=== PATIENT | male | born 1965 | race Caucasian/White ===

== ENCOUNTER 2022-10-13 11:10 | Emergency (ER) | payer BC, SELFPAY ==
--- NOTE | ~2022-10-13 | XR_ITS ---
EXAMINATION: XR CHEST CLINICAL INFORMATION: Chest pain. COMPARISON: None available. TECHNIQUE: 2 views of the chest were obtained. FINDINGS: The lungs are moderately expanded. No focal consolidation. No pleural effusion. Cardiac silhouette is within normal limits. XR/XR chest 2V IMPRESSION: No acute abnormality.
--- NOTE | 2022-10-13 11:13 | ECG_ITS ---
Test Reason : CP Blood Pressure : / mmHG Vent. Rate : 074 BPM Atrial Rate : 074 BPM P-R Int : 150 ms QRS Dur : 088 ms QT Int : 450 ms P-R-T Axes : 057 037 054 degrees QTc Int : 499 ms Normal sinus rhythm Prolonged QT Abnormal ECG When compared with ECG of 13-OCT-2006 13:35, No significant change was found Referred By: Generic ED Physician Electronically Signed By:Rangel Kulkarni
[2022-10-13 11:15] VITALS: BP 151/92; PULSE 85; RESP 20; TEMP 36.6; O2SAT 98; BMI 32.1
[2022-10-13 11:25] VITALS: PULSE 75
[2022-10-13 11:29] VITALS: BP 132/82; PULSE 68; PULSE 70; RESP 15; TEMP 36.5; O2SAT 97
--- NOTE | 2022-10-13 11:37 | ED_ITS ---
HPI - Chest Pain General Chief Complaint: Chest Pain Stated Complaint: chest pain Time Seen by Provider: 10/13/22 11:35 Source: patient and RN notes reviewed Mode of arrival: ambulatory Limitations: no limitations History of Present Illness HPI narrative: This is a 56-year-old male, with a past medical history of hyperlipidemia and hypertension, presenting to the emergency department with complaints of 2 days of substernal chest pain. Patient states that the pain is intermittent and occurs with moving around. Denies any recent trauma, or injury. Patient denies any fevers, chills, cough, palpitations, shortness of breath, abdominal pain, nausea, vomiting, or diarrhea. He states that he had a cardiac workup 2 years ago which was unremarkable. Patient reports that he recently traveled from [place] via train, reports that it was 9 hours and then an additional 7 hour car ride home. Patient reports that his father from heart attack at age 62. He reports that he played golf last week and is unsure if he strained a muscle while playing. No other complaints or concerns at this time. MD complaint: other (Chest tightness) Pertinent past history: coronary artery disease Onset (ago): day(s) Timing of current episode: episodic Prior episodes: Yes Onset: awoke with symptoms and other (Movement) Pain location: substernal Pain radiation: none Quality: tightness Relieving factors: nothing Exacerbating factors: nothing Context: recent travel Treatment prior to arrival: aspirin Risk Factors Coronary artery disease risk factors: hyperlipidemia and hypertension Thoracic aortic dissection risk factors: none Pulmonary embolism risk factors: immobilization (Recent long travel) Related Data Allergies Allergy/AdvReac Type Severity Reaction Status Date / Time nut - unspecified Allergy Anaphylaxis Verified 10/13/22 11:38 peanut Allergy Anaphylaxis Verified 10/13/22 11:38 tree nut Allergy Anaphylaxis Verified 10/13/22 11:38 Review of Systems Review of Systems: Constitutional: No Weight loss, No Fever, No Chills, No Night Sweats, No Fatigue, No Malaise ENT/Mouth: No Hearing loss, No Ear Pain, No Nasal Congestion, No Sinus Pain, No Hoarseness, No sore throat, No Rhinorrhea, No Swallowing Difficulty Eyes: No Eye Pain, No Swelling, No Redness, No Foreign Body, No Discharge, No Vision Changes Cardiovascular: +Chest Pain, No SOB, No Dyspnea on Exertion, No Orthopnea, No Edema, No Palpitations Respiratory: No Cough, No Sputum, No Wheezing, No Smoke Exposure, No Dyspnea Gastrointestinal: No Nausea, No Vomiting, No Diarrhea, No Constipation, No Abdominal pain, No Hematochezia, No Melena Genitourinary: No irregular bleeding, No Dysuria, No Urinary Frequency, No Hematuria, No Urinary Incontinence/retention, No Urgency, No Flank Pain, No Urinary Flow Changes, No Hesitancy Musculoskeletal: No joint pain, No Myalgias, No Joint Swelling Skin: No Skin Lesions, No rash Neuro: No Weakness, No Numbness, No Paresthesias, No Loss of Consciousness, No Dizziness, No Headache Psych: No Anxiety/Panic, No Depression, No SI/HI/AH/VH, No Social Issues, Heme/Lymph: No Bruising, No Bleeding,No Lymphadenopathy Endocrine: No Polyuria, No Polydipsia, No Temperature Intolerance Yes all other systems are reviewed and are negative Constitutional: Constitutional: Reports as per [facility] Social History Social History Smoked in Last 30 Days: No Use of substances other than those prescribed or required for medical reasons: No Advance Directives: Yes Advance Directives Information Provided: No Advance Directives on File: No Physical Exam Vital Signs: Vital Signs: Last Vital Signs Temp 98.2 F 10/13/22 13:35 Pulse 67 10/13/22 13:34 Resp 14 10/13/22 13:34 BP 149/96 H 10/13/22 13:34 Pulse Ox 98 10/13/22 13:34 O2 Del Method Room Air 10/13/22 13:34 BMI result Body Mass Index 32.1 Const: General: cooperative, comfortable and no acute distress Orientat ion/consciousness: patient oriented x3 Limitations: no limitations HEENT: Head: Yes normal to inspection, Yes normocephalic and Yes atraumatic Ears: hearing grossly normal bilaterally General nose exam: Normal external nose present Face and sinus: Yes normal facial exam Mouth: Normal oral and palatal mucosa present, oropharynx normal and moist mucous membranes Throat: Yes posterior oropharynx normal Eyes: General: appearance normal, both eyes and all related structures Eyelids: Yes eyelids normal Conjunctivae: conjunctivae normal Sclerae: sclerae normal Pupils: Equal, round and reactive pupils present EOM: EOMs intact bilaterally Neck: Neck: Yes normal visual inspection, Yes full ROM and Yes no lymphadenopathy Lymphatic: no lymphadenopathy noted Chest: Other: Point tenderness to palpation along the left anterior chest wall approximately 2 cm from the the medial clavicle. No step-off or deformity, no ecchymosis or edema. Chest palpation & inspection: normal inspection of the chest Resp: Effort & Inspection: normal respiratory effort and able to speak in complete sentences Auscultation: clear to auscultation bilaterally, no crackles, no rales, no rhonchi and no wheezes Cardio: Rate: regular rate Rhythm: regular rhythm Heart sounds: S1 normal heart sound present and S2 normal heart sound present GI: Other: Normoactive bowel sounds present in all 4 quadrants. Inspection: Yes normal to inspection Palpation (GI): Soft to palpation, nontender and no guarding Skin: General skin exam: no rashes or lesions noted Trauma: no lacerations or abrasions Wounds: no wounds Neuro: General: patient oriented x3 and moves all extremities Cranial nerves: Yes Equal, round and reactive pupils present Extrem: Other: No calf tenderness to palpation. General: Yes normal to inspection and No pedal edema Right upper extremity: normal to inspection Left upper extremity: normal to inspection Right lower extremity: normal to inspection Left lower extremity: normal to inspection Course Reevaluation(s) Reevaluation #1: Patient re-evaluated, chest x-ray unremarkable, no leukocytosis, D-dimer negative, chemistry panel within normal limits, patient tested negative for COVID, RSV, and flu. Troponin x1 negative, does not need repeat given symptoms have been constant for the last 2 days. Patient has reproducible left-sided chest wall tenderness consistent with musculoskeletal, given negative cardiac workup today. Discussed all these results with patient with at bedside. Patient is reassured this. Advised patient to follow-up with his primary care physician as patient may benefit from further cardiology outpatient workup given patient's father's medical history. Patient given return precautions. Patient understands and agrees with plan. Patient stable for discharge. Time: 14:32 Medical Decision Making Medical Decision Making MDM Narrative: 56-year-old male, with a past medical history of hypertension and hyperlipidemia, presenting to the emergency department for evaluation of chest tightness for the last 2 days. Patient awoke with the symptoms and states that the pain is intermittent and occurs with movement. On examination, patient mildly hypertensive at 151/92, all other vital signs within normal limits. Physical exam with point tenderness palpation along the left anterior chest wall. Patient reports recent long travel reporting long train ride approximately 9 hours and sound 7 hour car ride last week. Patient has no shortness of breath or palpitations. Patient has no known history of blood clots however given recent immobilization I think is reasonable to order a D- dimer for rule out. No lower extremities calf tenderness. Does not sound cardiac in etiology, likely musculoskeletal pain however will order cardiac workup for rule out given history of hypertension and hyperlipidemia. Plan: Labs, EKG, chest x-ray Differential Diagnosis Differential Diagnoses: The differential diagnosis associated with the presentation includes ACS, PE, pneumothorax, costochondritis, pneumonia Admission/Observation Consideration of admission/observation: Escalation of care including admission/observation considered Escalation of care was considered including admission given chest pain and to known cardiovascular risk factors. Lab Data MDM Lab Attestation statement: I reviewed the patient's lab results. See course 10/13/22 12:15 10/13/22 12:16 Labs: Lab Results 10/13/22 10/13/22 10/13/22 Range/Units 12:15 12:15 12:15 WBC 5.6 (4.8-10.8) X10*3/uL RBC 4.31 L (4.60-5.80) X10*6/uL Hgb 14.5 (14.0-18.0) g/dl Hct 42.7 (42.0-52.0) % MCV 99.1 H (80.0-98.0) fL MCH 33.6 H (27.0-33.0) pg MCHC 34.0 (31.0-36.0) g/dl RDW 12.8 (11.0-16.0) % Plt Count 250 (160-400) X10*3/uL MPV 9.0 L (9.4-12.4) fL Immature Gran % (Auto) 0.2 (0.0-0.4) % Neut % (Auto) 71.2 (45-73) % Lymph % (Auto) 12.5 L (20-40) % [place] % (Auto) 11.1 H (2-11) % Eos % (Auto) 4.5 H (0-4) % Baso % (Auto) 0.5 (0-2) % Lymph # (Auto) 0.7 L (1.2-4.9) X10*3/uL [place] # (Auto) 0.6 (0.1-1.2) X10*3/uL Eos # (Auto) 0.3 (0.0-0.4) X10*3/uL Baso # (Auto) 0.0 (0.0-0.2) X10*3/uL Abs Immat Gran (auto) 0.01 (0.00-0.03) X10*3/uL Absolute Neuts (auto) 4.0 (2.0-8.3) x10*3/uL Absolute Nucleated RBC 0.000 (0.0-0.012) X10*3/uL Nucleated RBC % (auto) 0.0 (0.0-0.2) /100WBC D-Dimer High Sensitivty NG/ML Sodium (135-145) mmol/L Potassium (3.3-5.1) mmol/L Chloride (96-108) mmol/L Carbon Dioxide (22-29) mmol/L Anion Gap (12-20) BUN (9-16) mg/dL Creatinine (0.5-1.4) mg/dL Estim Creat Clear Calc Estimated GFR Random Glucose (60-115) mg/dL Calcium (8.4-10.2) mg/dL Magnesium (1.6-2.6) mg/dL Total Bilirubin (0.0-1.0) mg/dL Direct Bilirubin (0.0-0.5) mg/dL AST (5-37) U/L ALT (0-40) U/L Alkaline Phosphatase (39-117) U/L Troponin I High Sens < 2.7 (<3.5-35.0) ng/L Total Protein (6.5-8.0) g/dL Albumin (3.5-5.0) g/dL Lipase (8-78) U/L Influenza Type A (PCR) NEGATIVE (Negative) Influenza Type B (PCR) NEGATIVE (Negative) RSV RNA Qual (PCR) NEGATIVE (Negative) SARS-CoV-2 RNA (RT-PCR) NEGATIVE (Negative) 10/13/22 10/13/22 Range/Units 12:16 12:16 WBC (4.8-10.8) X10*3/uL RBC (4.60-5.80) X10*6/uL Hgb (14.0-18.0) g/dl Hct (42.0-52.0) % MCV (80.0-98.0) fL MCH (27.0-33.0) pg MCHC (31.0-36.0) g/dl RDW (11.0-16.0) % Plt Count (160-400) X10*3/uL MPV (9.4-12.4) fL Immature Gran % (Auto) (0.0-0.4) % Neut % (Auto) (45-73) % Lymph % (Auto) (20-40) % [place] % (Auto) (2-11) % Eos % (Auto) (0-4) % Baso % (Auto) (0-2) % Lymph # (Auto) (1.2-4.9) X10*3/uL [place] # (Auto) (0.1-1.2) X10*3/uL Eos # (Auto) (0.0-0.4) X10*3/uL Baso # (Auto) (0.0-0.2) X10*3/uL Abs Immat Gran (auto) (0.00-0.03) X10*3/uL Absolute Neuts (auto) (2.0-8.3) x10*3/uL Absolute Nucleated RBC (0.0-0.012) X10*3/uL Nucleated RBC % (auto) (0.0-0.2) /100WBC D-Dimer High Sensitivty 237 NG/ML Sodium 142 (135-145) mmol/L Potassium 4.4 (3.3-5.1) mmol/L Chloride 103 (96-108) mmol/L Carbon Dioxide 27 (22-29) mmol/L Anion Gap 16 (12-20) BUN 12 (9-16) mg/dL Creatinine 0.93 (0.5-1.4) mg/dL Estim Creat Clear Calc 107.7 Estimated GFR > 60 Random Glucose 103 (60-115) mg/dL Calcium 10.6 H (8.4-10.2) mg/dL Magnesium 1.9 (1.6-2.6) mg/dL Total Bilirubin 1.0 (0.0-1.0) mg/dL Direct Bilirubin 0.3 (0.0-0.5) mg/dL AST 44 H (5-37) U/L ALT 38 (0-40) U/L Alkaline Phosphatase 100 (39-117) U/L Troponin I High Sens (<3.5-35.0) ng/L Total Protein 7.9 (6.5-8.0) g/dL Albumin 4.2 (3.5-5.0) g/dL Lipase 26 (8-78) U/L Influenza Type A (PCR) (Negative) Influenza Type B (PCR) (Negative) RSV RNA Qual (PCR) (Negative) SARS-CoV-2 RNA (RT-PCR) (Negative) Independent Interpretation I performed an independent interpretation of an: EKG Interpretation: EKG normal sinus rhythm at a ventricular rate of 74 beats per minute, CO interva l 150, QTC 499, no ST elevation or depression. Radiology Impression Discussion of test interpretation with radiology: I have reviewed the r adiologist's reading. Radiologist Impression: EXAMINATION: XR CHEST CLINICAL INFORMATION: Chest pain. COMPARISON: None available. TECHNIQUE: 2 views of the chest were obtained. FINDINGS: The lungs are moderately expanded. No focal consolidation. No pleural effusion. Cardiac silhouette is within normal limits. XR/XR chest 2V IMPRESSION: No acute abnormality. Dictated By: Love France MD Signed By: <Electronically signed by Love France MD in OV> 10/13/22 1342 DD/ 1257 TD/TT:? Meter Tester Polyphase: External Record Review External record reviewed: Inpatient record, Office record, Outpatient record, Prior outpatient labs, Prior outpatient radiology, Primary care record and Outside ED record Discharge Plan Discharge Clinical Impression: Chest pain Patient Disposition: Home, Self-Care Instructions: Chest Pain (ED) Additional Instructions: Your EKG was normal, your chest x-ray showed no evidence of pneumonia or any other abnormalities. And all other blood work was reassuring. Please follow-up with your primary care physician regarding this visit. You may take ibuprofen or Tylenol as needed for your pain. Ice pack or hot pack may help with your symptoms. If any new or worsening symptoms occur please return for re-evaluation.
--- NOTE | 2022-10-13 11:38 | PC.NURSE ---
pa/rn at bedside- eval pt- denies CP at this time. bp has improved from earlier- SBP 130s. resting with no distress. talking w/o SOB. +o2 sat on RA. no N/V. no dizziness.
[2022-10-13 12:33] LABS: MANUAL DIFF FLAG NO
[2022-10-13 12:35] LABS: Basophils Percent Auto 0.5 % (0-2); Eosinophils Absolute Auto 0.3 X10*3/uL (0.0-0.4); Eosinophils Percent Auto 4.5 % (0-4); Hematocrit 42.7 % (42.0-52.0); Hemoglobin 14.5 g/dl (14.0-18.0); Imm Gran Abs Auto 0.01 X10*3/uL (0.00-0.03); Imm Gran Pct Auto 0.2 % (0.0-0.4); Lymphocytes Absolute Auto 0.7 X10*3/uL (1.2-4.9); Lymphocytes Percent Auto 12.5 % (20-40); Mean Corpuscular Hemoglobin 33.6 pg (27.0-33.0); Mean Corpuscular Volume 99.1 fL (80.0-98.0); Monocytes Absolute Auto 0.6 X10*3/uL (0.1-1.2); Monocytes Percent Auto 11.1 % (2-11); Neutrophils Percent Auto 71.2 % (45-73); Platelet Count 250 X10*3/uL (160-400); Red Blood Count 4.31 X10*6/uL (4.60-5.80); Red Cell Distribution Width 12.8 % (11.0-16.0); White Blood Count 5.6 X10*3/uL (4.8-10.8)
[2022-10-13 12:46] LABS: D Dimer High Sensitivity 237 NG/ML
[2022-10-13 12:53] LABS: Alanine Aminotransferase 38 U/L (0-40); Albumin Level 4.2 g/dL (3.5-5.0); Alkaline Phosphatase 100 U/L (39-117); Anion Gap 16 (12-20); Aspartate Amino Transferase 44 U/L (5-37); Bilirubin Direct 0.3 mg/dL (0.0-0.5); Blood Urea Nitrogen 12 mg/dL (9-16); Calcium 10.6 mg/dL (8.4-10.2); Carbon Dioxide 27 mmol/L (22-29); Chloride 103 mmol/L (96-108); Creatinine Clr Calc Pharmacy 107.7; Estimated Glomerular Filt Rate > 60; Glucose Random 103 mg/dL (60-115); Lipase 26 U/L (8-78); Magnesium 1.9 mg/dL (1.6-2.6); Potassium 4.4 mmol/L (3.3-5.1); Sodium 142 mmol/L (135-145); Total Protein 7.9 g/dL (6.5-8.0)
[2022-10-13 13:06] LABS: Troponin-I High Sensitivity < 2.7 ng/L (<3.5-35.0)
[2022-10-13 13:13] LABS: Influenza A PCR NEGATIVE (Negative); Influenza B PCR NEGATIVE (Negative); Resp Syncy Virus RNA Qual PCR NEGATIVE (Negative); SARS COV2 PCR INHOUSE NEGATIVE (Negative)
[2022-10-13 13:34] VITALS: BP 149/96; PULSE 66; PULSE 67; RESP 14; O2SAT 98
[2022-10-13 13:35] VITALS: TEMP 36.8
== END 2022-10-13 15:05 | disposition home or self-care (01) ==
PROVIDERS: Physician Assistant Medical; Emergency Provider Emergency Medicine
DX: R07.9 Chest pain, unspecified (principal); Z20.822 Contact with and (suspected) exposure to COVID-19; Z20.828 Contact with and (suspected) exposure to other viral communicable diseases; I10 Essential (primary) hypertension; E78.5 Hyperlipidemia, unspecified
CPT/HCPCS: 0241U; 36415; 71046; 80048; 80076; 83690; 83735; 84484; 85025; 85379; 93005; 99283; 99285